=== PATIENT | female | born 1995 | race Caucasian/White ===

== ENCOUNTER → 2017-04-18 | Outpatient (CLI) | payer BC ==
--- NOTE | 2017-04-19 08:19 | MRI ---
Study: MRI of the Right Shoulder. Indication: RIGHT SHOULDER PAIN Technique: Multiplanar, multi sequence MRI of the right shoulder was obtained without intravenous contrast. Comparison: None. Findings: AC joint normal. Type I acromion with minimal lateral downsloping. Subtle low-grade supraspinatus and infraspinatus tendinosis. No tear. Subscapularis and teres minor tendons intact. Rotator cuff musculature normal without atrophy, fatty infiltration, or intramuscular edema. Long head biceps tendon intact. Undersurface and free edge tearing throughout the superior labrum extending posteriorly to the 10:00 position. Free edge truncation of the posterior labrum. No labral detachment. No advanced glenohumeral joint osteoarthritis. Patchy marrow edema noted within the humeral neck as well as throughout the anterior aspects of the coracoid. These changes are likely stress-related. No fracture identified. No evidence of a dislocation event. Impression: Low-grade supraspinatus and infraspinatus tendinosis without tear. Free edge and undersurface tearing superior labrum with free edge truncation of the posterior labrum. Abnormal marrow edema humeral neck and coracoid likely stress-related but nonspecific. Repeat imaging after a period of diminished activity recommended to ensure resolution of the signal changes. Electronically signed by: Lj Carter MD 04/19/2017 8:17 AM CDT
== END | disposition home or self-care (01) ==
LOC: MRI 09:46
PROVIDERS: ATTEND Nurse Practitioner Acute Care
DX: M75.31 Calcific tendinitis of right shoulder (principal)